=== PATIENT | male | born 1950 ===

== ENCOUNTER 2017-07-29 08:18 | Emergency (ER) | payer MEDICARE, OTHER ==
[2017-07-29 08:18] VITALS: BMI 29.2
[2017-07-29 08:24] VITALS: BP 155/57; PULSE 66; RESP 16; TEMP 97.7; O2SAT 100
[2017-07-29 10:22] LABS: ALB/GLOB RATIO 1.1 (1.0-2.1); ALT/SGPT 41 U/L (21-72); AST/SGOT 34 U/L (17-59); BLOOD UREA NITROGEN 17 mg/dl (9-20); CALCIUM 8.7 mg/dL (8.4-10.2); GFR AFRICAN-AMERICAN > 60; GFR NON-AFRICAN AMERICAN > 60
[2017-07-29 10:26] LABS: BASO # 0.1 K/uL (0.0-0.2); BASO % 0.5 % (0.0-2.0); EOS # 0.3 K/uL (0.0-0.7); HEMOGLOBIN 13.4 g/dL (12.0-18.0); LYMPH # 1.7 K/uL (1.0-4.3); LYMPH % 15.2 % (20.0-40.0); MEAN CELL VOLUME 85.4 fl (80.0-94.0); MEAN CORPUSCULAR HEMOGLOBIN 28.2 pg (27.0-31.0); MEAN PLATELET VOLUME 8.7 fl (7.2-11.7); MONO # 0.6 K/uL (0.0-0.8); MONO % 5.5 % (0.0-10.0); NEUT # 8.3 K/uL (1.8-7.0); NEUT % 75.8 % (50.0-75.0); NRBC % 0.1 % (0.0-0.0); RBC 4.76 Mil/uL (4.40-5.90); RED CELL DISTRIBUTION WIDTH 14.1 % (11.5-14.5)
--- NOTE | 2017-07-29 10:31 | ED PDOC ---
HPI: CCC, URI, Sore Throat Time Seen by Provider: 07/29/17 09:18 Chief Complaint (Nursing): ENT Problem Chief Complaint (Provider): ENT Problem History Per: Patient History/Exam Limitations: no limitations Onset/Duration Of Symptoms: Days (x3) Current Symptoms Are (Timing): Still Present Additional Complaint(s): 66 year old male with a past medical history of diabetes, who presents to the ED complaining of cough, congestion, sore throat, and body aches x3 days. States his also has similar symptoms. Denies chest pain, shortness of breath, nausea, vomiting, diarrhea, and rash. PMD: Massimo Ahmadi Past Medical History Reviewed: Historical Data, Nursing Documentation, Vital Signs Vital Signs: Last Vital Signs Temp 97.7 F 07/29/17 08:21 Pulse 66 07/29/17 08:21 Resp 16 07/29/17 08:21 BP 155/57 H 07/29/17 08:21 Pulse Ox 100 07/29/17 19:17 - Medical History PMH: Diabetes (noncompliant with medications x6 months), Hypercholesterolemia, Hyperlipidemia, Sleep Apnea Denies: Chronic Kidney Disease - Surgical History Surgical History: No Surg Hx - Family History Family History: States: Unknown Family Hx - Home Medications Home Medications: Ambulatory Orders Medication Instructions Recorded Atorvastatin [Lipitor] 40 mg PO DAILY 03/22/16 metFORMIN [glucOPHAGE] 500 mg PO BID 06/18/16 Amoxicillin 500 mg PO TID #30 tab 07/29/17 - Allergies Allergies/Adverse Reactions: Allergies Allergy/AdvReac Type Severity Reaction Status Date / Time No Known Allergies Allergy Verified 08/02/15 09:42 Review of Systems ROS Statement: Except As Marked, All Systems Reviewed And Found Negative Constitutional: Positive for: Other (body aches) ENT: Positive for: Nose Congestion, Throat Pain Cardiovascular: Negative for: Chest Pain Respiratory: Positive for: Cough. Negative for: Shortness of Breath Gastrointestinal: Negative for: Nausea, Vomiting, Diarrhea Skin: Negative for: Rash Physical Exam - Reviewed Nursing Documentation Reviewed: Yes Vital Signs Reviewed: Yes - Physical Exam Appears: Positive for: Non-toxic, No Acute Distress Head Exam: Positive for: ATRAUMATIC, NORMAL INSPECTION, NORMOCEPHALIC Skin: Positive for: Normal Color, Warm, Dry. Negative for: Rash Eye Exam: Positive for: EOMI, Normal appearance, PERRL ENT: Positive for: Normal ENT Inspection Cardiovascular/Chest: Positive for: Regular Rate, Rhythm. Negative for: Murmur Respiratory: Positive for: Normal Breath Sounds. Negative for: Respiratory Distress Gastrointestinal/Abdominal: Positive for: Normal Exam, Bowel Sounds, Soft. Negative for: Tenderness Neurologic/Psych: Positive for: Alert, Oriented (x3) - Laboratory Results Result Diagrams: 07/29/17 10:00 07/29/17 10:00 - ECG O2 Sat by Pulse Oximetry: 100 (RA) Pulse Ox Interpretation: Normal - Radiology X-Ray: Interpreted by Me (CXR) X-Ray Interpretation: No Acute Disease - Progress ED Course And Treament: Rapid strep: positive. Medical Decision Making Medical Decision Making: Time: 09:46 Initial Plan: --CMP --CBC w/ differential --Portable CXR --Blood culture --IV Insertion --Influenza A B --Rapid strep group A --Reevaluation Scribe Attestation: Documented by Bharat Justice, acting as a scribe for Tyrone Lujan PA-C. Provider Scribe Attestation: All medical record entries made by the Scribe were at my direction and personally dictated by me. I have reviewed the chart and agree that the record accurately reflects my personal performance of the history, physical exam, medical decision making, and the department course for this patient. I have also personally directed, reviewed, and agree with the discharge instructions and disposition. Disposition - Clinical Impression Clinical Impression: Strep pharyngitis - Patient ED Disposition Is Patient to be Admitted: No - Disposition Disposition: Routine/Home Disposition Time: 12:51 Condition: STABLE Prescriptions: Amoxicillin 500 mg PO TID #30 tab Instructions: Strep Throat (ED) Forms: [employer] (Turkmen) Print Language: MALAYSIAN
--- NOTE | 2017-07-29 11:27 | RAD ---
HISTORY: cough COMPARISON: Comparison is made with 03/23/2016 TECHNIQUE: Chest PA and lateral FINDINGS: LUNGS: Small bibasilar opacities noted may represent atelectasis. Otherwise no significant interval change in the lungs. PLEURA: No significant pleural effusion identified. No pneumothorax apparent. CARDIOVASCULAR: Normal. OSSEOUS STRUCTURES: No significant abnormalities. VISUALIZED UPPER ABDOMEN: Normal. OTHER FINDINGS: None. IMPRESSION: Small bibasilar opacities likely atelectasis.
== END 2017-07-29 12:20 | disposition home or self-care (01) ==
LOC: H.ER 08:18
DX: J02.0 Streptococcal pharyngitis (principal); E11.9 Type 2 diabetes mellitus without complications; E78.00 Pure hypercholesterolemia, unspecified; E78.5 Hyperlipidemia, unspecified